=== PATIENT | female | born 1970 | race African-American/Black ===

== ENCOUNTER 2017-01-22 09:51 | Emergency (ER) | payer OTHER ==
[~2017-01-22] VITALS: Ht 157.5 cm; Wt 73.9 kg
[~2017-01-22 09:51] MED LIST: BACTRIM,SEPT1 TABLET PO; CIPRO500 MG PO; CIPROFLOXACIN H10 ML BOTH EYES; FLEXERIL10 MG PO; GLIPIZIDE 10 MG PO; GLIPIZIDE10 MG PO; GLUCOPHAGE500 MG PO; GLUCOTROL XL10 MG PO; HYDROCODON-ACE1 EAC7 PO; LANTUS100 UNIT/1; LISINOPRIL2.5 MG PO; METFORMIN HCL500 MG PO; MOTRIN600 MG PO; PYRIDIUM200 MG PO; ULTRAM50 MG PO; ZOFRAN4 MG PO
[2017-01-22] MEDS ORDERED: PERCOCET 5/31 TABLET PO (10:10)
[2017-01-22 10:25] LABS: POINT-OF-CARE METER ID UU14100415
[2017-01-22 11:08] VITALS: BP 162/99
[2017-01-25] MEDS ORDERED: JANUVIA100 MG PO ×2 (14:51→14:52)
[2017-01-25] MEDS ORDERED: VENTOLIN HFA18 GM IH (14:52)
== END 2017-01-22 11:09 | disposition home or self-care (01) ==
LOC: EME 09:51
PROVIDERS: Physician Assistant
PROC: 0H98XZZ Drainage of Buttock Skin, External Approach (ICD-10-PCS; principal; 2017-01-22)
DX: L02.31 Cutaneous abscess of buttock (principal); E11.65 Type 2 diabetes mellitus with hyperglycemia; Z79.84 Long term (current) use of oral hypoglycemic drugs
CPT/HCPCS: 82948; 99281; 99283

== ENCOUNTER 2017-01-26 14:34 | Day surgery (SDC) | payer OTHER ==
[~2017-01-26] VITALS: Ht 157.5 cm; Wt 75.0 kg
[~2017-01-26 14:34] MED LIST changes: +JANUVIA100 MG PO; +PERCOCET 5/31 TABLET PO; +VENTOLIN HFA18 GM IH
[2017-01-26] MEDS ORDERED: GLUCOPHAGE500 MG PO (15:08)
[2017-01-26 15:15] VITALS: BP 141/74
[2017-01-26 15:39] LABS: POINT-OF-CARE METER ID UU14174212
[2017-01-26 16:01] LABS: CHLORIDE 102 mEq/L (99-109); POTASSIUM 4.5 mEq/L (3.7-5.4); SODIUM 136 mEq/L (136-147)
[2017-01-26 16:02] LABS: GLUCOSE 283 mg/dL (70-99)
[2017-01-26 16:04] LABS: ANION GAP 9 MEQ/L (2-14)
[2017-01-26 16:06] LABS: GFR ESTIMATE (CALCULATED) > 59 mL/min/
[2017-01-26 16:07] LABS: UREA NITROGEN (BUN) 16 mg/dL (9-23)
[2017-01-26] MEDS ORDERED: NORCO 5/3251 TABLET PO (20:37)
[2017-01-26 20:44] LABS: POINT-OF-CARE METER ID UU13113675
[2017-01-26 20:55] VITALS: BP 163/94
[2017-01-26 21:55] VITALS: BP 147/66
[2017-01-26 22:31] VITALS: BP 162/74
[2017-02-01 09:47] LABS: INTERNAL CONTROL VALID? YES
== END 2017-01-26 22:41 | disposition home or self-care (01) ==
LOC: SDC 14:34
PROVIDERS: Anesthesiology; Surgery
PROC: 0J990ZZ Drainage of Buttock Subcutaneous Tissue and Fascia, Open Approach (ICD-10-PCS; principal; 2017-01-26)
DX: L02.31 Cutaneous abscess of buttock (principal); L03.317 Cellulitis of buttock; E11.9 Type 2 diabetes mellitus without complications; J45.909 Unspecified asthma, uncomplicated; I10 Essential (primary) hypertension; E78.5 Hyperlipidemia, unspecified; Z79.84 Long term (current) use of oral hypoglycemic drugs; H54.0 Blindness, both eyes; Z79.899 Other long term (current) drug therapy; E66.3 Overweight; Z68.29 Body mass index [BMI] 29.0-29.9, adult
CPT/HCPCS: 80048; 82948; 84703; 87070; 87075; 87077; 87147; 87186; 87205; 93005; J0330; J0690; J1100; J2250; J2405; J2765; J3010; S0020

== ENCOUNTER 2017-01-28 20:00 | Emergency (ER) | payer OTHER ==
[~2017-01-28] VITALS: Ht 157.5 cm; Wt 73.3 kg
[~2017-01-28 20:00] MED LIST changes: +NORCO 5/3251 TABLET PO
[2017-01-28 20:39] LABS: HEMATOCRIT 43.6 % (36.0-46.0); MCH 25.5 PG (29.0-34.0); MCHC 33.3 G/DL (30.0-36.0); MCV 76.6 FL (83-99); MEAN PLAT.VOLUME 11.1 uM^3 (9.5-12.4); PLATELET COUNT 303 K/uL (156-360); RBC DIS.WIDTH-CV 13.6 % (11.8-14.6); RBC DIS.WIDTH-SD 37.3 % (39-53); RED BLOOD COUNT 5.69 M/uL (3.80-5.20); WHITE BLOOD COUNT 14.4 K/uL (4.1-10.2)
[2017-01-28 20:50] LABS: CHLORIDE 98 mEq/L (99-109); POTASSIUM 3.9 mEq/L (3.7-5.4); SODIUM 139 mEq/L (136-147)
[2017-01-28 20:53] LABS: ANION GAP 16 MEQ/L (2-14)
[2017-01-28 20:54] LABS: TOTAL BILIRUBIN 0.4 mg/dL (0.0-1.0)
[2017-01-28 20:55] LABS: ALKALINE PHOSPHATASE 104 IU/L (3-129)
[2017-01-28 20:56] LABS: GFR ESTIMATE (CALCULATED) > 59 mL/min/
[2017-01-28 20:57] LABS: UREA NITROGEN (BUN) 16 mg/dL (9-23)
[2017-01-28 20:59] LABS: LIPASE 23 U/L (1.0-51.0)
[2017-01-28 21:05] LABS: GLUCOSE 428 mg/dL (70-99)
[2017-01-28 21:07] LABS: QUANTITATIVE HCG < 4.0 MIU/ML
[2017-01-28 21:54] LABS: CARBON DIOXIDE (BICARBONATE) 28.4 MEQ/L (20-31)
[2017-01-28 23:43] LABS: ADD MIUA? YES; BILIRUBIN NEGATIVE; BLOOD MODERATE; COLOR YELLOW ((YELLOW)); GLUCOSE (STRIP) >=500; KETONES 20; LEUKOCYTES NEGATIVE; NITRITE NEGATIVE; PROTEIN (STRIP) 30; SPECIFIC GRAVITY 1.032 (1.000-1.030); UROBILINOGEN 0.2 MG/DL (0.2-1.0)
[2017-01-28 23:46] LABS: BACTERIA NONE SEEN /HPF; EPITHELIAL CELLS RARE /HPF; MUCUS TRACE /LPF; RED BLOOD CELLS 0-5 /HPF (0-5); UCUL ADDED? NO; WHITE BLOOD CELLS 0-5 /HPF (0-5)
[2017-01-29] MEDS ORDERED: CITRATE OF MAG296 ML PO (01:10)
[2017-01-29 01:14] LABS: POINT-OF-CARE METER ID UU13113800
[2017-01-29 01:40] VITALS: BP 141/84
== END 2017-01-29 01:50 | disposition home or self-care (01) ==
LOC: EME 20:00
PROVIDERS: Physician Assistant Medical
DX: R10.84 Generalized abdominal pain (principal); K59.00 Constipation, unspecified; E11.65 Type 2 diabetes mellitus with hyperglycemia; Z98.890 Other specified postprocedural states; Z87.442 Personal history of urinary calculi; J45.909 Unspecified asthma, uncomplicated; Z79.84 Long term (current) use of oral hypoglycemic drugs
CPT/HCPCS: 74022; 80053; 81003; 82010; 82803; 82948; 83690; 84702; 85027; 99281; 99284; J7030

== ENCOUNTER 2017-08-13 21:07 | Emergency (ER) | payer OTHER ==
[~2017-08-13] VITALS: Ht 157.5 cm; Wt 74.3 kg
[~2017-08-13 21:07] MED LIST changes: +CITRATE OF MAG296 ML PO
[2017-08-13] MEDS ORDERED: NAPROSYN500 MG PO (22:49)
[2017-08-13 23:54] VITALS: BP 139/95
== END 2017-08-13 23:56 | disposition home or self-care (01) ==
LOC: EME 21:07
DX: S63.601A Unspecified sprain of right thumb, initial encounter (principal); S80.01XA Contusion of right knee, initial encounter; E11.9 Type 2 diabetes mellitus without complications; W19.XXXD Unspecified fall, subsequent encounter; Z79.84 Long term (current) use of oral hypoglycemic drugs
CPT/HCPCS: 73140; 73564; 99281; 99283

== ENCOUNTER 2018-01-24 10:13 | Emergency (ER) | payer OTHER ==
[~2018-01-24] VITALS: Ht 157.5 cm; Wt 70.3 kg
[~2018-01-24 10:13] MED LIST changes: +NAPROSYN500 MG PO
[2018-01-24 10:51] LABS: BASOPHIL (%) 0.2 % (0-1); EOSINOPHIL (%) 5.9 % (0-5); EOSINOPHIL COUNT 0.7 K/uL (0-0.3); HEMATOCRIT 42.6 % (36.0-46.0); HEMOGLOBIN 14.3 G/DL (11.9-15.5); IMMATURE GRANULOCYTE (%) 0.4 % (0.0-0.7); LYMPHOCYTE (%) 16.2 % (15-42); MCH 25.9 PG (29.0-34.0); MCHC 33.6 G/DL (30.0-36.0); MCV 77.2 FL (83-99); MONOCYTE (%) 6.1 % (3-12); MONOCYTE COUNT 0.8 K/uL (0-0.8); NEUTROPHIL (%) 71.2 % (45-76); NEUTROPHIL COUNT 8.9 K/uL (1.8-6.4); PLATELET COUNT 254 K/uL (156-360); RBC DIS.WIDTH-CV 13.4 % (11.8-14.6); RBC DIS.WIDTH-SD 37.8 % (39-53); RED BLOOD COUNT 5.52 M/uL (3.80-5.20); WHITE BLOOD COUNT 12.5 K/uL (4.1-10.2)
[2018-01-24 10:52] LABS: CARBON DIOXIDE (BICARBONATE) 32.8 MEQ/L (20-31)
[2018-01-24 11:01] LABS: ALBUMIN 3.8 g/dL (3.2-4.8)
[2018-01-24 11:02] LABS: CHLORIDE 101 mEq/L (99-109); SODIUM 137 mEq/L (136-147)
[2018-01-24 11:04] LABS: GLUCOSE 348 mg/dL (70-99); TOTAL PROTEIN 7.3 g/dL (6.4-8.3)
[2018-01-24 11:06] LABS: TOTAL BILIRUBIN 0.4 mg/dL (0.0-1.0)
[2018-01-24 11:08] LABS: ALKALINE PHOSPHATASE 113 IU/L (3-129); CREATININE 0.8 mg/dL (0.6-1.3); GFR ESTIMATE (CALCULATED) > 59 mL/min/
[2018-01-24 11:09] LABS: AST (GOT) 12 IU/L (2-34); UREA NITROGEN (BUN) 10 mg/dL (9-23)
[2018-01-24 11:10] LABS: DIRECT BILIRUBIN 0.2 mg/dL (0.0-0.3)
[2018-01-24 11:11] LABS: ALT (GPT) 20 IU/L (3-49); LIPASE 3 U/L (1.0-51.0)
[2018-01-24 11:36] LABS: APPEARANCE SL.HAZY ((CLEAR)); BILIRUBIN NEGATIVE; BLOOD NEGATIVE; COLOR YELLOW ((YELLOW)); GLUCOSE (STRIP) >=500; KETONES 20; LEUKOCYTES NEGATIVE; NITRITE NEGATIVE; PROTEIN (STRIP) 100; SPECIFIC GRAVITY 1.035 (1.000-1.030); UROBILINOGEN 0.2 MG/DL (0.2-1.0)
[2018-01-24 11:40] LABS: BACTERIA NONE SEEN /HPF; EPITHELIAL CELLS 1+ /HPF; MUCUS NONE SEEN /LPF; UCUL ADDED? NO; WHITE BLOOD CELLS 0-5 /HPF (0-5)
[2018-01-24 11:46] LABS: AMPHETAMINE NEGATIVE (500 ng/mL); BARBITURATES NEGATIVE (200 ng/mL); BENZODIAZEPINES NEGATIVE (150 ng/mL); BUPRENORPHINE NEGATIVE (10 ng/mL); COCAINE NEGATIVE (150 ng/mL); METHADONE NEGATIVE (200 ng/mL); METHAMPHETAMINE NEGATIVE (500 ng/mL); OPIATES (MORPHINE) NEGATIVE (100 ng/mL); OXYCODONE NEGATIVE (100 ng/mL); PHENCYCLIDINE NEGATIVE (25 ng/mL); PROPOXYPHENE NEGATIVE (300 ng/mL); THC CANNABINOIDS NEGATIVE (50 ng/mL); TRICYCLIC ANTIDEPRESSANTS NEGATIVE (300 ng/mL)
[2018-01-24] MEDS ORDERED: ERYTHROMYC1 APPLICAT RIGHT EYE (13:08)
[2018-01-24 13:35] VITALS: BP 158/82
== END 2018-01-24 14:09 | disposition home or self-care (01) ==
LOC: EME 10:13
PROVIDERS: Emergency Medicine
DX: R51 Headache (principal); H10.31 Unspecified acute conjunctivitis, right eye; M54.9 Dorsalgia, unspecified; E11.65 Type 2 diabetes mellitus with hyperglycemia; J45.909 Unspecified asthma, uncomplicated; Z87.442 Personal history of urinary calculi; Z79.84 Long term (current) use of oral hypoglycemic drugs
CPT/HCPCS: 80048; 80076; 81003; 82803; 82948; 83690; 85025; 99281; 99285; J0780; J1885; J7030